=== PATIENT | male | born 1975 | race Caucasian/White ===

== ENCOUNTER 2021-06-08 12:59 | Emergency (ER) | payer SELFPAY ==
[2021-06-08] MEDS ORDERED: CYCLOBENZAPRINE 10 MG TAB ONE (14:28)
[2021-06-08] MEDS ORDERED: HYDROCODONE/APAP 10/325 TAB ONE (14:29)
[2021-06-08] MEDS ORDERED: KETOROLAC 30 MG/ML INJ ONE (14:29)
[2021-06-08] MEDS ORDERED: LIDOCAINE 4% PATCH ONE (15:11)
--- NOTE | 2021-06-08 15:19 | EDPHYS ---
Physician Documentation [facility] Name: Alex Sprague Age: 46 yrs Sex: Male : 1975 Arrival Date: 06/08/2021 Time: 13:00 Bed 11 Private MD: ED Physician Pee Finn HPI: 06/08 14:17 This 46 yrs old Male presents to ER via Ambulatory with complaints of Back Pain. pm1 14:17 The patient presents with pain that is acute. The symptoms are located in the thoracic pm1 area. 14:17 Onset: The symptoms/episode began/occurred today. pm1 14:17 The pain does not radiate. Associated signs and symptoms: Pertinent negatives: pm1 abdominal pain, chest pain, dysuria, fever, numbness, tingling, weakness. The problem was sustained when lifting heavy object. Modifying factors: The patient symptoms are alleviated by remaining still, the patient symptoms are aggravated by movement. Severity of symptoms: in the emergency department the symptoms are unchanged. The patient has experienced a previous episode, many years ago, possible slipped disc based on x-ray. The patient has not recently seen a physician. Historical: - Allergies: 13:15 PENICILLINS; ap3 - Home Meds: 13:15 None [Active]; ap3 - PMHx: 13:16 None; ap3 - Immunization history:: Client reports having NOT received the Covid vaccine. Last tetanus immunization: up to date Flu vaccine is not up to date. - Social history:: Smoking status: Patient reports the use of cigarette tobacco products, smokes one-half pack cigarettes per day, Patient uses street drugs, marijuana. ROS: 14:17 Constitutional: Negative for fever, chills, and weight loss, Cardiovascular: Negative pm1 for chest pain, palpitations, and edema, Respiratory: Negative for shortness of breath, cough, wheezing, and pleuritic chest pain, Abdomen/GI: Negative for abdominal pain, nausea, vomiting, diarrhea, and constipation. 14:17 MS/Extremity: Negative for injury and deformity, Skin: Negative for injury, rash, and discoloration. 14:17 Back: Positive for of the thoracic area. 14:17 Neuro: Negative for headache, numbness, tingling, weakness. 14:17 All other systems are negative. pm1 Exam: 14:17 Constitutional: This is a well developed, well nourished patient who is awake, alert, pm1 and in no acute distress. Head/Face: Normocephalic, atraumatic. 14:17 Skin: Warm, dry with normal turgor. Normal color with no rashes, no lesions, and no evidence of cellulitis. MS/ Extremity: Pulses equal, no cyanosis. Neurovascular intact. Full, normal range of motion. 14:17 Eyes: Exam is negative for acute changes, Pupils: no acute changes, Extraocular movements: no acute changes. 14:17 Cardiovascular: Exam negative for acute changes, Rate: normal, Rhythm: regular, Pulses: no pulse deficits are appreciated, Heart sounds: normal. 14:17 Respiratory: Exam negative for acute changes, respiratory distress, shortness of breath. 14:17 Abdomen/GI: Inspection: abdomen appears normal, Palpation: abdomen is soft and non-tender, in all quadrants. 14:17 Back: normal spinal alignment noted, vertebral tenderness, is not appreciated, muscle spasm, is appreciated in the thoracic area. 14:17 Neuro: Exam negative for acute changes, Orientation: is normal, Mentation: is normal, Motor: is normal, moves all fours. Vital Signs: 13:12 BP 140 / 85; Pulse 107; Resp 17; Temp 98.2; Pulse Ox 96% ; Weight 106.14 kg; Height 6 ap3 ft. 2 in. (187.96 cm); Pain 8/10; 13:12 Body Mass Index 30.04 (106.14 kg, 187.96 cm) ap3 MDM: 13:49 Patient medically screened. pm1 14:17 ED course: Discussed with patient option for imaging. Patient offered thoracic spine pm1 x-ray for further evaluation of possible herniated disks that he has a history of from 2005 due to slipping on ice. Patient refused he just wants the medications for pain. 14:29 Data reviewed: vital signs. Data interpreted: Pulse oximetry: on room air is 96 %. pm1 Interpretation: normal. 15:17 Counseling: I had a detailed discussion with the patient and/or guardian regarding: the pm1 historical points, exam findings, and any diagnostic results supporting the discharge/admit diagnosis, the need for outpatient follow up, to return to the emergency department if symptoms worsen or persist or if there are any questions or concerns that arise at home. Administered Medications: 14:38 Drug: Ketorolac 60 mg Route: IM; Site: right gluteus; gleason 14:39 Follow up: Response: No adverse reaction gleason 14:39 Drug: [place] (HYDROcodone-acetaminophen) 10 mg-325 mg 1 tabs Route: PO; gleason 14:39 Follow up: Response: No adverse reaction gleason 15:15 Follow up: Response: No adverse reaction; Pain is decreased; RASS: Alert and Calm (0) ll1 14:39 Drug: Flexeril (cyclobenzaprine) 10 mg Route: PO; gleason 14:39 Follow up: Response: No adverse reaction gleason 15:15 Drug: Lidoderm Patch 5 % (700 mg/patch) 1 patches Route: Topical; Site: affected area; ll1 Disposition Summary: 06/08/21 15:18 Discharge Ordered Location: Home pm1 Problem: new pm1 Symptoms: have improved pm1 Condition: Stable pm1 Diagnosis - Back pain - thoracic area pm1 Followup: pm1 - With: Emergency Department - When: As needed - Reason: Worsening of condition Followup: pm1 - With: Private Physician - When: 2 - 3 days - Reason: Recheck today's complaints, Continuance of care, Re-evaluation by your physician Discharge Instructions: - Discharge Summary Sheet pm1 - Acute Back Pain, Adult pm1 - Muscle Strain pm1 Forms: - Medication Reconciliation Form pm1 - Thank You Letter pm1 - Antibiotic Education pm1 - Prescription Opioid Use pm1 Prescriptions: - Lidoderm 5 % Topical adhesive patch,medicated - apply 1 patch by TRANSDERMAL route once daily As needed 12 hours on and 12 pm1 hours off in a 24-hour period; 10 patch; Refills: 0, Product Selection Permitted - Cyclobenzaprine 10 mg Oral Tablet - take 1 tablet by ORAL route every 8 hours As needed; 30 tablet; Refills: 0, pm1 Product Selection Permitted - Diclofenac Sodium 75 mg Oral tablet,delayed release (DR/EC) - take 1 tablet by ORAL route 2 times per day As needed; 30 tablet; Refills: 0, pm1 Product Selection Permitted - Tylenol-Codeine #3 300 mg-30 mg Oral - take 2 tablet by ORAL route every 6 hours As needed; 20 tablet; Refills: 0, pm1 Product Selection Permitted Signatures: Bruno Patricio NP DATA SUPPORT ANALYST pm1 Elsy Walton RN RN ap3 Marcelo Johnson, RN RN ll1 Melyssa-Sharee, Brandie, RN RN gleason
--- NOTE | 2021-06-08 15:19 | ER ---
Nurse's Notes [facility] Name: Alex Sprague Age: 46 yrs Sex: Male : 1975 Arrival Date: 06/08/2021 Time: 13:00 Bed 11 Private MD: Diagnosis: Back pain - thoracic area Presentation: 06/08 13:12 Chief complaint: Patient states: he was assisting a friend in moving large tree stumps, ap3 when he feels like he injured his back. Patient states the injury occurred at approx noon today. Patient states pain is currently an 8/10. Coronavirus screen: At this time, the client does not indicate any symptoms associated with coronavirus-19. Ebola Screen: No symptoms or risks identified at this time. Initial Sepsis Screen: Does the patient meet any 2 criteria? HR > 90 bpm. Does the patient have a suspected source of infection? No. Patient's initial sepsis screen is negative. Risk Assessment: Do you want to hurt yourself or someone else? Patient reports no desire to harm self or others. Onset of symptoms was June 08, 2021 at 12:00. 13:12 Method Of Arrival: Ambulatory ap3 13:12 Acuity: JAMIE 4 ap3 Triage Assessment: 13:16 General: Appears in no apparent distress. Behavior is calm, cooperative, appropriate ap3 for age. Pain: Complains of pain in low back area Pain currently is 8 out of 10 on a pain scale. Quality of pain is described as crampy, stabbing, throbbing. Neuro: Level of Consciousness is awake, alert, obeys commands, Oriented to person, place, time, situation, Appropriate for age Gait is steady, Speech is normal. Cardiovascular: Patient's skin is warm and dry. Respiratory: Airway is patent Respiratory effort is even, unlabored, Respiratory pattern is regular, symmetrical. Musculoskeletal: Range of motion: intact in all extremities. Historical: - Allergies: 13:15 PENICILLINS; ap3 - Home Meds: 13:15 None [Active]; ap3 - PMHx: 13:16 None; ap3 - Immunization history:: Client reports having NOT received the Covid vaccine. Last tetanus immunization: up to date Flu vaccine is not up to date. - Social history:: Smoking status: Patient reports the use of cigarette tobacco products, smokes one-half pack cigarettes per day, Patient uses street drugs, marijuana. Screenin:18 Abuse screen: Denies threats or abuse. Nutritional screening: No deficits noted. ap3 Tuberculosis screening: No symptoms or risk factors identified. 16:08 Fall Risk Total Carson Fall Scale indicates No Risk (0-24 pts). ll1 Assessment: 13:52 Reassessment: No changes from previously documented assessment. Patient and/or family ll1 updated on plan of care and expected duration. Pain level reassessed. Patient is alert, oriented x 3, equal unlabored respirations, skin warm/dry/pink. Neuro: Level of Consciousness is awake, alert, obeys commands. 14:40 Reassessment: No changes from previously documented assessment. Patient and/or family ll1 updated on plan of care and expected duration. Pain level reassessed. Patient is alert, oriented x 3, equal unlabored respirations, skin warm/dry/pink. 15:25 Reassessment: No changes from previously documented assessment. Patient and/or family ll1 updated on plan of care and expected duration. Pain level reassessed. Patient is alert, oriented x 3, equal unlabored respirations, skin warm/dry/pink. Patient states feeling better. Patient states symptoms have improved. Vital Signs: 13:12 BP 140 / 85; Pulse 107; Resp 17; Temp 98.2; Pulse Ox 96% ; Weight 106.14 kg; Height 6 ap3 ft. 2 in. (187.96 cm); Pain 8/10; 13:12 Body Mass Index 30.04 (106.14 kg, 187.96 cm) ap3 ED Course: 13:00 Patient arrived in ED. am2 13:15 Triage completed. ap3 13:18 Arm band placed on left wrist. ap3 13:49 Bruno Patricio NP is PHCP. pm1 13:49 Pee Finn MD is Attending Physician. pm1 13:50 Marcelo Johnson, VICKI is Primary Nurse. ll1 13:50 Patient placed in an exam room, on a stretcher. ll1 15:28 Patient has correct armband on for positive identification. Bed in low position. Call ll1 light in reach. Side rails up X 1. 15:28 No provider procedures requiring assistance completed. Patient did not have IV access ll1 during this emergency room visit. Administered Medications: 14:38 Drug: Ketorolac 60 mg Route: IM; Site: right gluteus; gleason 14:39 Follow up: Response: No adverse reaction gleason 14:39 Drug: [place] (HYDROcodone-acetaminophen) 10 mg-325 mg 1 tabs Route: PO; gleason 14:39 Follow up: Response: No adverse reaction gleason 15:15 Follow up: Response: No adverse reaction; Pain is decreased; RASS: Alert and Calm (0) 1 14:39 Drug: Flexeril (cyclobenzaprine) 10 mg Route: PO; gleason 14:39 Follow up: Response: No adverse reaction gleason 15:15 Drug: Lidoderm Patch 5 % (700 mg/patch) 1 patches Route: Topical; Site: affected area; [facility] Outcome: 15:18 Discharge ordered by MD. pm1 15:28 Patient left the ED. ll1 15:28 Discharged to home ambulatory. 1 15:28 Condition: stable 15:28 Discharge instructions given to patient, Instructed on discharge instructions, follow up and referral plans. no drinking with medication, no driving heavy equipment, medication usage, Demonstrated understanding of instructions, follow-up care, medications, Prescriptions given X 4. Signatures: Bruno Patricio, [employer]ENNY INTELLECTUAL PROPERTY MANAGER pm1 Elsy Valdivia am2 Elsy Walton RN RN ap3 Marcelo Johnson RN RN [facility] Brandie Varela RN RN
[2021-06-08 21:52] VITALS: BP 140/85; TEMP 98.2; O2SAT 96
== END 2021-06-08 15:28 | disposition home or self-care (01) ==
LOC: ER 12:59
DX: M54.6 Pain in thoracic spine (principal); F17.210 Nicotine dependence, cigarettes, uncomplicated; Z88.0 Allergy status to penicillin
CPT/HCPCS: 96372; 99283